=== PATIENT | male | born 1950 | race Two or more races ===

== ENCOUNTER → 2022-02-18 | Emergency (ER) | payer MEDICARE ==
[~2022-02-18] VITALS: Ht 170.2 cm; Wt 113.6 kg
[~2022-02-18] MED LIST: ACETAMINOPHEN 500 MG TABLET PO ONE; GABA-1181 PO; GABAPENTIN 300 MG CAPSULE PO ONE; METH-659 PO; METHOCARBAMOL 500 MG TABLET PO ONE
[2022-02-18 20:18] VITALS: BP 152/84
== END | disposition home or self-care (01) ==
LOC: EMS 18:49
DX: M54.42 Lumbago with sciatica, left side (principal); G89.29 Other chronic pain; M54.2 Cervicalgia
CPT/HCPCS: 99284; Z7502; Z7610